=== PATIENT | female | born 1990 | race Caucasian/White ===

== ENCOUNTER 2020-05-09 17:11 | Emergency (ER) | payer SELFPAY ==
--- NOTE | 2020-05-09 18:32 | ED.PDOC ---
History of Present Illness - General Chief Complaint: Abdominal Pain Stated Complaint: abdominal pain Time Seen by Provider: 05/09/20 18:28 Source: patient, RN notes reviewed, Vital Signs reviewed Exam Limitations: no limitations Additional Information: 29 year-old female, with no known medical problems presents to the ER because of left lower quadrant pain dizziness began about 3 days ago, also some vaginal spotting, and menstrual period was last month on the 18 that she is late on her menstrual., Patient is A1 has multiple for , has had a D&C as well patient had an appointment with her md tomorrow with decided to come in today, she is not sure if she is - History of Present Illness Timing/Duration: other - 3 days Severity: moderate Improving Factors: nothing Worsening Factors: nothing Associated Symptoms: other - vaginal bleeding Allergies/Adverse Reactions: Allergies NO KNOWN ALLERGY Allergy (Verified 05/09/20 18:36) Home Medications: Ambulatory Orders Acetaminophen W/ Codeine [Tylenol W/ CODEINE #3] 1 ea PO Q6HRS 5 Days #20 ea 05/09/20 Review of Systems - Review of Systems Constitutional: States: no symptoms reported EENTM: States: no symptoms reported Respiratory: States: no symptoms reported Cardiology: States: no symptoms reported Gastrointestinal/Abdominal: States: abdominal pain Genitourinary: States: no symptoms reported Musculoskeletal: States: no symptoms reported Neurological: States: no symptoms reported Endocrine: States: no symptoms reported Hematologic/Lymphatic: States: no symptoms reported Family Medical History - Family History Mother Family History: Unknown Physical Exam - Physical Exam General Appearance: Well Developed, Well Groomed, Well Hydrated, Well Nourished Eye Exam: bilateral normal Ears, Nose, Throat: hearing grossly normal, normal ENT inspection, normal pharynx Neck: non-tender, full range of motion, supple, normal inspection Respiratory: chest non-tender, lungs clear, normal breath sounds, no respiratory distress, no accessory muscle use Cardiovascular/Chest: normal peripheral pulses, regular rate, rhythm, no edema, no gallop, no JVD, no murmur Peripheral Pulses: radial,right: 2+, radial,left: 2+ Gastrointestinal/Abdominal: normal bowel sounds, soft, tenderness - left lower quadrant pain with no reboudn and no guarding Back Exam: normal inspection Extremity: normal range of motion, non-tender, normal inspection, no pedal edema Neurologic: rn progressive care unit II-XII nml as tested, no motor/sensory deficits, alert, normal mood/affect, oriented x 3 Skin Exam: normal color Lymphatic: no adenopathy Progress - Progress Progress: 3Patient back no vomiting no dysuria or nocturia patient is marrher menstrual., Patient is late, patient did not have any right lower quadrant pain oriented attestation, patient was not no evidence of UTI, since we have no ultrasound to evaluate the ovaries for ovarian torsion or cyst, I ordered a CT of the abdomen that did not show any evidence of big ovarian cyst, it did show evidence of cholelithiasis with some mild pericholecystic fluid the suspicion for cholecystitis was has to be considered, patient does have normal liver enzymes and does not have any right upper quadrant pain, I discussed with the patient the CT findings, and told that she needs to follow-up with a surgeon for evaluation of gallbladder disease and possible cholecystectomy especially given to return to the ER immediately with any severe nausea vomiting abdominal pain right lower quadrant pain back pain diarrhea bloody stools decrease oral intake unwanted weight loss unable to hold any fluids down diarrhea blood in the urine blood in the stools right lower quadrant pain fever chills or new concerns 05/09/20 20:12 Departure - Departure Clinical Impression: Abdominal pain Qualifiers: Abdominal location: left lower quadrant Qualified Code(s): R10.32 - Left lower quadrant pain Disposition: Discharge to Home or Self Care Condition: Fair Departure Forms: ED Discharge - Pt. Copy, Patient Portal Self Enrollment Instructions: DI for Abdominal Pain-Adult, Severe Abdominal Pain, Adult (DC), Acute Pelvic Pain (DC) Diet: low fat, low cholesterol Prescriptions: Acetaminophen W/ Codeine [Tylenol W/ CODEINE #3] 1 ea PO Q6HRS 5 Days #20 ea Home Medications: Ambulatory Orders Acetaminophen W/ Codeine [Tylenol W/ CODEINE #3] 1 ea PO Q6HRS 5 Days #20 ea 05/09/20 Additional Instructions: return to the ER immediately with any severe nausea vomiting abdominal pain right lower quadrant pain back pain diarrhea bloody stools decrease oral intake unwanted weight loss unable to hold any fluids down diarrhea blood in the urine blood in the stools right lower quadrant pain fever chills or new concerns
--- NOTE | 2020-05-09 20:07 | CT ---
CT ABDOMEN AND PELVIS WITH CONTRAST. CLINICAL HISTORY: Left lower quadrant pain. COMPARISON: None. TECHNIQUE: Axial CT imaging of the abdomen and pelvis performed with intravenous contrast. Reformatted coronal and sagittal images reviewed. A dose reduction technique was utilized with automated exposure control according to patient size. FINDINGS: Clear lung bases. Heart is normal in size. The liver is enlarged to approximately 20 cm. No liver mass or biliary dilatation. There is a calcified stone within the gallbladder with minimal sludge. There is slight pericholecystic edema. No biliary dilatation. Unremarkable spleen, pancreas, adrenal glands, and kidneys. Normal caliber aorta and inferior vena cava. No adjacent lymphadenopathy. Mesenteric vessels are unremarkable. The stomach appears normal. Small bowel loops are normal in caliber. Appendix is normal within the right lower quadrant. Unremarkable colon. There is no ascites. No free air. No mesenteric adenopathy. Unremarkable bladder. Normal uterus. There are bilateral ovarian follicles. No free fluid or lymphadenopathy. Normal lumbosacral alignment. Lower thoracic endplate Schmorl's nodes are present. Intact bony pelvis. Normal hips. Unremarkable soft tissues. IMPRESSION: 1. Cholelithiasis with minimal sludge with minimal pericholecystic edema suspicious for mild acute cholecystitis. No biliary dilatation. 2. Hepatomegaly. Electronically signed by: Tessa Dennis DO 05/09/2020 8:05 PM POWER SYSTEM OPERATOR
[2020-05-09 20:18] VITALS: TEMP 97.5; O2SAT 99
[2020-05-09 20:33] VITALS: BP 126/84
== END 2020-05-09 20:21 | disposition home or self-care (01) ==
LOC: ER 17:11
DX: R10.32 Left lower quadrant pain (principal); K80.20 Calculus of gallbladder without cholecystitis without obstruction; R42 Dizziness and giddiness; Z32.02 Encounter for pregnancy test, result negative